=== PATIENT | female | born 1970 | race Two or more races ===

== ENCOUNTER 2025-01-13 00:50 | Emergency (ER) | payer MEDICAID, SELFPAY ==
--- OUTSIDE RECORDS SUMMARY | 2023-08-19 05:00 | XMS_ITS ---
Author Organization Teresa Perry M.D. Address [address] [place] [address] Care Team Providers Care Patient Transporter Name Role Phone TERESA PERRY Primary Care Provider [place] STROUD, Teresa Unavailable [phone] Abdoul Perry Unavailable [phone] REASON FOR VISIT *LAB RESULTS* Social History Sex Assigned At : Social History Observation Description Sex Assigned At Female Encounters Encounter Location Date Provider Diagnosis Teresa Perry M.D. [address] [place] [address] 08/19/2023 Abdoul Perry Plan Of Treatment No Information Progress Notes * YENNIFER FAITHDOB:05/1970 (54 yo F)Acc No.[id number]:08/19/2023 Progress Notes Patient: Mary Lou CRUMP YENNIFER HWANG Provider: John Perry :1970 A ge:52 Y S ex:Female Date:08/19/2023 Address:[address] [place] [address] [address], [facility] Pcp:TERESA PERRY Subjective: * Chief Complaints: * 1 . *LAB RESULTS*. * Medical History: Objective: * Vitals: Assessment: Plan: * Treatment: * Images: Billing Information: * Visit Code: * Procedure Codes: * Electronic signature of Camden Perry MD, [id number] on 01/13/2025 at 12:54 AM SENIOR PRODUCT DEVELOPMENT MANAGER Sign off status: Pending * Provider: John Perry Date: 0 08/19/2023 Generated for Rajani grande/Mario/Roz on: 1 03/15/2024 12:54 AM SENIOR PRODUCT DEVELOPMENT MANAGER
--- OUTSIDE RECORDS SUMMARY | 2023-09-09 02:15 | XMS_ITS ---
Author Organization Teresa Perry M.D. Address [address] [place] [address] Care Team Providers Care Federal Mediator Name Role Phone TERESA PERRY Primary Care Provider [phone] Teresa Perry MD Unavailable [phone] Naomy Perry Unavailable [phone] REASON FOR VISIT mammo results and labs results Social History Sex Assigned At : Social History Observation Description Sex Assigned At Female Encounters Encounter Location Date Provider Diagnosis Teresa Perry M.D. [address] [place] [address] 09/09/2023 Naomy Perry Plan Of Treatment No Information Progress Notes * YENNIFER FAITHDOB:05/1970 (54 yo F)Acc No.[id number]:09/09/2023 Telehcommunication Progress Notes Patient: Mary Lou CRUMP YENNIFER HWANG Provider: Syed Perry :1970 A ge:52 Y S ex:Female Date:09/09/2023 [facility] [facility] [address] [facility] [address], [facility] Pcp:TERESA PERRY Subjective: * Chief Complaints: * 1 . Mammo results and labs results. * Medical History: Objective: * Vitals: Assessment: Plan: * Treatment: Care Plan: * Problems: * Images: Billing Information: * Visit Code: * Procedure Codes: * Electronic signature of Silvia Perry MD, [id number] on 01/13/2025 at 12:54 AM RIGGING WORKER Sign off status: Pending * Provider: Syed Perry Date: 0 09/09/2023 Generated for Rajani grande/Mario/Roz on: 1 03/15/2024 12:54 AM RIGGING WORKER
--- OUTSIDE RECORDS SUMMARY | 2023-10-12 09:00 | XMS_ITS ---
Author Organization Teresa Perry M.D. Address [address] [facility] [place] [address] Care Team Providers Care Transfusion Aide Name Role Phone TERESA PERRY Primary Care Provider [phone] Orlando STROUD, Teresa Unavailable [phone] REASON FOR VISIT PPD skin test reading only.. Medications Medication SIG (Take, Route, Fr equency, Duration) Notes Start Date End Date Status Lisinopril 10 MG 1 tablet Orally Once a day; Duration: 90 days Active methIMAzole 5 MG 1/2 TABLET Orally On ce a day; Duration: 30 days Active Social History Sex Assigned At : Social History Observation Description Sex Assigned At Female Encounters Encounter Location Date Provider Diagnosis Teresa Perry M.D. [address] [facility] [place] [address] 10/12/2023 TERESA PERRY Plan Of Treatment No Information Progress Notes * YENNIFER FAITHDOB:05/1970 (54 yo F)Acc No.[id number]:10/12/2023 Progress Note Patient: Mary Lou CRUMP YENNIFER HWANG Provider: Silviano Perry MD :1970 A ge:52 Y S ex:Female Date:10/12/2023 Address:[address] [facility] [address], [facility] Subjective: * Chief Complaints: * 1 . PPD skin test reading only... * Medical History: * Medications: T aking Lisinopril 10 MG Tablet 1 tablet Orally Once a day , Taking methIMAzole 5 MG Tablet 1/2 TABLET Orally Once a day Objective: * Vitals: Assessment: Plan: * Treatment: * Images: Billing Information: * Visit Code: * Procedure Codes: * Electronic signature of ELENI PERRY MD on 01/13/2025 at 12:54 AM RESIDENTIAL FEE APPRAISER Sign off status: Pending * Provider: Silviano Perry MD Date: 0 10/12/2023 Generated for Rajani grande/Mario/Roz on: 1 03/15/2024 12:54 AM RESIDENTIAL FEE APPRAISER
--- OUTSIDE RECORDS SUMMARY | 2024-05-10 03:45 | XMS_ITS ---
Author Organization Walker Meng DO Address [address] [place] [address] Care Team Providers Care Emblem Maker Name Role Phone WALKER MENG Unavailable [phone] Encounters Encounter Location Date Provider Diagnosis [facility], [facility] [address] [place] [address] 05/10/2024 WALKER MENG Plan Of Treatment No Information Progress Notes * Marium SORENSENDOB:1970 (54 yo F)Acc No.[id number]:05/10/2024 Progress Notes Patient: Fbaiola PADILLAdith Provider: John Meng DO :1970 A ge:53 Y S ex:Female Date:05/10/2024 Phone: Address:[address] [place], [place] [phone] Subjective: * Chief Complaints: * * Medical History: Objective: * Vitals: Assessment: Plan: * Treatment: Forms: Care Plan: * Problems: * Images: Billing Information: * Visit Code: * Procedure Codes: Care Plan Details* * Electronic signature of JAGDISH MENG D.O. on 01/13/2025 at 12:55 AM BALLASTER Sign off status: Pending * Provider: John [facility]eng DO Date: 0 05/10/2024 Generated for Rajani grande/Mario/Kelliitting on: 1 03/15/2024 12:55 AM BALLASTER
--- OUTSIDE RECORDS SUMMARY | 2024-08-14 05:30 | XMS_ITS ---
Author Organization Teresa Perry M.D. Address [address] [place] [address] Care Team Providers Care Training Administrator Name Role Phone TERESA PERRY Primary Care Provider Teresa Perry MD Unavailable [phone] Abdoul Perry Unavailable [phone] Social History Sex Assigned At : Social History Observation Description Sex Assigned At Female Encounters Encounter Location Date Provider Diagnosis Teresa Perry M.D. [address] [place] [address] 08/14/2024 Abdoul Perry Annual physical exam Z00.00 ; Hyperthyroidism E05.90 and Essential hypertension I10 Assessments Encounter Date Diagnosis (ICD Code) Assessment Notes Treatment Notes Treatment Clinical Notes Section Notes 08/14/2024 Annual physical exam (ICD-10 - Z00.00) 08/14/2024 Hyperthyroidism (ICD-10 - E05.90) 08/14/2024 Essential hypertension (ICD-10 - I10) Plan Of Treatment No Information Progress Notes * YENNIFER FAITHDOB:05/1970 (54 yo F)Acc No.[id number]:08/14/2024 Progress Notes Patient: Mary Lou MOFFETTEZKATT ELMOREDITH Provider: John Perry :1970 A ge:53 Y S ex:Female Date:08/14/2024 Address:[address] [place], [place] [phone] Pcp:TERESA PERRY Subjective: * Chief Complaints: * * Medical History: Objective: * Vitals: Assessment: * Assessment: 1. A nnual physical exam - Z00.00 (Primary) 2 . H yperthyroidism - E05.90? 3. E ssential hypertension - I10 Plan: * Treatment: Care Plan: * Problems: * Images: Billing Information: * Visit Code: * Procedure Codes: * Electronic signature of Camden Perry MD, [id number] on 01/13/2025 at 12:54 AM PLASTIC FABRICATOR Sign off status: Pending * Provider: John Perry Date: 0 08/14/2024 Generated for Rajani grande/Mario/Roz on: 03/15/2024 12:54 AM PLASTIC FABRICATOR
--- OUTSIDE RECORDS SUMMARY | 2024-08-28 03:00 | XMS_ITS ---
Author Organization [facility] Address [address] [place] [address] Care Team Providers Care Morning Nanny Name Role Phone HEATHER PANCHAL Primary Care Provider Tai GOTTI Unavailable [phone] REASON FOR VISIT TELE MAMMO RESULTS Encounters Encounter Location Date Provider Diagnosis [facility] [address] [place] [address] 08/28/2024 Tai GOTTI Plan Of Treatment No Information Progress Notes * EDDIE DONYSHAHEENDOB:1970 (54 yo F)Acc No.[id number]:08/28/2024 Progress Notes Patient: YENNIFER PADILLA Provider: Syed Gotti :1970 A ge:53 Y S ex:Female Date:08/28/2024 Phone: Address:[facility] [place] Pcp:HEATHER PANCHAL Subjective: * Chief Complaints: * T NAVIN MAMMO RESULTS Billing Information: * Procedure Codes: * Electronic signature of CHRISTOPHER Sweeney P-AC on 01/13/2025 at 12:54 AM JOURNEYMAN GLAZIER Sign off status: Pending * Provider: Syed Gotti Date: 08/28/2024 Generated for Rajani grande/Mario/eTransmitting on: 03/15/2024 12:54 AM JOURNEYMAN GLAZIER
--- OUTSIDE RECORDS SUMMARY | 2024-10-15 10:30 | XMS_ITS ---
Author Organization Walker Meng DO Address [address] [place] [address] Care Team Providers Care Retail Seasonal Specialist Name Role Phone WALKER MENG Unavailable [phone] REASON FOR VISIT dexa Encounters Encounter Location Date Provider Diagnosis [facility], [facility] [address] [place] [address] 10/15/2024 WALKER MENG Plan Of Treatment No Information Progress Notes * Marium SORENSENDOB:1970 (54 yo F)Acc No.[id number]:10/15/2024 Progess Note Patient: Fabiola PADILLAdith Provider: John Meng DO :1970 A ge:53 Y S ex:Female Date:10/15/2024 Phone: Address:[address] [place], [place] [phone] Subjective: * Chief Complaints: * 1 . Dexa. * Medical History: Objective: * Vitals: Assessment: Plan: * Treatment: * Images: Billing Information: * Visit Code: * Procedure Codes: * Electronic signature of JAGDISH MENG D.O. on 01/13/2025 at 12:55 AM SUPERVISOR PHOSPHORUS PROCESSING Sign off status: Pending * Provider: John Meng DO Date: 0 10/15/2024 Generated for Rajani grande/Mario/eTransmitting on: 1 03/15/2024 12:55 AM SUPERVISOR PHOSPHORUS PROCESSING
--- OUTSIDE RECORDS SUMMARY | 2025-01-13 00:54 | XMS_ITS | Patient Health Record ---
Author Organization [facility] Address [address] [place] [address] Care Team Providers Care Cone Classifier Tender Name Role Phone HEATHER PANCHAL Primary Care Provider Tai GOTTI Unavailable [phone] Allergies No Known Allergies Reason For Referral No Information Medications Medication SIG (Take, Route, Frequency, Duration) Notes Start Date End Date Status Cetirizine HCl 10 MG Tablet 1 tablet as needed Orally Once a day; Duration: 90 days 10/16/2020 Not-Taking Rosuvastatin Calcium 5 MG Tablet 1 tablet Orally Once a day; Duration: 90 days 11/21/2020 Not-Takin g methIMAzole 10 MG Tablet 1 tablet Orally twice a day; Duration: 30 day(s) Active Lisinopril 5 MG Tablet 2 tablets Orally Once a day Active Social History Tobacco Use: Social History Observation Description Date Details (start date - stop date) Former Smoker NA - NA Social History Drugs/Alcohol: Social Info Question Answer Notes Drugs Have you used drugs other than those for medical reasons in the past 12 months? No Drug/Alcohol: Social Info Question Answer Notes AUDIT-C (Standard) Did you have a drink containing alcohol in the past year? Yes How often did you have a drink containing alcohol in the past year? 2 to 4 times a month (2 points) How many drinks did you have on a typical day when you were drinking in the past year? 1 or 2 drinks (0 point) How often did you have six or more drinks on one occasion in the past year? Never (0 point) Points 2 Interpretation Negative Tobacco Use: Social Info Question Answer Notes Tobacco Control (Standard) Tobacco use: Former smoker Additional Findings: Tobacco non-user Cu rrent nonsmoker, but past smoking history unknown Problems Problem Type SNOMED Code ICD Code Onset Dates Problem Status W/U Status Risk Notes Problem Iron deficiency anemia (45638624) Iron deficiency anemia, unspecified (D50.9) Active confirmed Hemoglobin normal but MCV is low - pt has hysterectomy and denies GI symptoms. Will order iron panel and H. pylori exam, f/u in 3-4 weeks for results Problem Thyrotoxicosis (23670890) Thyrotoxicosis , unspecified without thyrotoxic crisis or storm (E05.90) Active confirmed She is on Methimazole, Problem Hyperlipidemia (58626487) Hyperlipidemia , unspecified (E78.5) Active confirmed TC: Tri: LDL: HDL: ASCVD risk %: Start a diet low in saturated fats, increased physical exercise and weight loss recommended. Start Rosuvastatin 5 mg PO once a day will repeat in 3 months Problem Refractory migraine with aura (862711255) Migraine with aura, intractable, without status migrainosus (G43.119) Active confirmed Sumatriptan/Na proxen 85mg/500mg PO as needed for migraine headache, Problem Essential hypertension (70252003) Essential (primary) hypertension (I10) Active confirmed I discussed lifestyle changes with patient: Reduce salt in diet, lose weight, avoid alcohol, do not smoke, exercise at least 30 min/day. Adhere to medication regimen. Problem Allergic rhinitis (05816357) Allergic rhinitis, unspecified (J30.9) Active confirmed Cetirizine Problem Problem, abnormal examination (66240944) Encounter for general adult medical examination with abnormal findings (Z00.01) Active confirmed Follow up in 2 weeks. Problem Counseling about tobacco use (430548304) Tobacco abuse counseling (Z71.6) Active confirmed Patient already has stopped smoking started at the age of 9 Problem Impacted cerumen (08163359) Impacted cerumen of left ear (H61.22) Active confirmed Vital Signs Heart Rate 68 /min 04/12/2024 Temperature 98.5 degrees Fahrenheit 04/12/2024 Respiratory Rate 18 /min 04/12/2024 Oximetry 97 % 04/12/2024 Blood pressure diastolic 90 mm Hg 04/12/2024 Height 61 in 04/12/2024 Blood pressure systolic 140 mm Hg 04/12/2024 Weight 145 lbs 04/12/2024 BMI 27.39 kg/m2 04/12/2024 Encounters Encounter Location Date Provider Diagnosis [facility] [address] [place] [address] 04/12/2024 Ariadnamilvia GOTTI Procedure and treatment not carried out due to patient leaving prior to being seen by health care provider Z53.21 Assessments Encounter Date Diagnosis (ICD Code) Assessment Notes Treatment Notes Treatment Clinical Notes Section Notes 04/12/2024 Procedure and treatment not carried out due to patient leaving prior to being seen by health care provider (ICD-10 - Z53.21) Plan Of Treatment Pending Test Test Name Order Date MAMMOGRAM 3D 04/12/2024 Insurance Providers Payer Name Payer Address Payer Phone Subscriber Number Group Number Insured Name Patient Relationship to Insured Coverage Start Date Coverage End Date [facility] [address] [place] [address] [id number] YENNIFER MORGAN Self - patient is the insured Medical (General) History Medical History History ICD Code Hyperthyroidism Seasonal Allergies Migraine headaches Surgical History Surgery Date(Month/Year) total hysterectomy 03/2019 left ear tumor removed- benign 2018 left ear cyst removed 2017 2005
[2025-01-13 00:55] VITALS: BP 116/79; PULSE 77; RESP 20; TEMP 36.1; O2SAT 96; BMI 27.4
--- OUTSIDE RECORDS SUMMARY | 2025-01-13 00:55 | XMS_ITS | Clinical Summary ---
Author Organization [facility] [facility] Address [address] [place] [address] Care Team Providers Care Trackmobile Operator Name Role Phone Pcp, No Primary Care Provider Unavailabl e Allergies No known active allergies Medications lisinopriL (PRINIVIL; ZESTRIL) 10 mg tabletIndications :Essential hypertension Take 1 Tablet (10 mg) by mouth once daily. 100 Tablet 3 12/14/2023 Active methIMAzole (TAPAZOLE) 5 mg tabletIndications :Hyperthyroidism Take 1 Tablet (5 mg) by mouth once daily. 30 Tablet 1 12/14/2023 Active Active Problems Problem Noted Date Diagnosed Date Essential hypertension 05/29/2021 Hyperthyroidism 05/07/2021 Mixed hyperlipidemia 05/07/2021 Immunizations Immunization Administration Dates Next Due COVID-19 vaccine (Andela 30mcg/0.3mL) P F, MDV 07/17/2020,06/17/2020 Influenza Nasal, Unspecified Formulation 022 Influenza Virus, Unspecified 12/04/2020 Social History Tobacco Use Types Packs/Day Years Used Date Smoking Tobacco: Former Cigarettes Smokeless Tobacco: Former Tobacco Cessation:Counseling Given: Not Answered Alcohol Use Standard Drinks/Week Comments Not Currently 0 (1 standard drink = 0.6 oz pur e alcohol) occ Comments No Sex and Gender Information Value Date Recorded Sex Assigned at Not on file Legal Sex Female 10:14 AM CDT Gender Identity Not on file Sexual Orientation Not on file Obstetrics History Last Filed Vital Signs Vital Sign Reading Time Taken Comments Blood Pressure 144/91 12/14/2023 2:27 PM CDT Pulse 88 12/14/2023 2:27 PM CDT Temperature - - Respiratory Rate - - Oxygen Saturation 96% 12/14/2023 2:27 PM CDT Inhaled Oxygen Concentration - - Weight 90 kg (198 lb 6.4 oz) 12/14/2023 2:27 PM CDT Height - - Body Mass Index - - Plan of Treatment Health Maintenance Due Date Last Done Comments Tetanus booster 12/01/1982 Depression screening for age 12+ 1983 HIV for age 15-65 12/01/1986 BMI (ht and wt on same day) for age 18+ 12/01/1989 Hepatitis C screening for age 18-79 12/01/1989 Hepatitis B series for 19+ ( 1 of 3 - 19+ 3-dose series) 12/01/1990 Pap test for age 21-65 12/01/1992 Colonoscopy through age 75 12/01/2016 Lipids for age 45-75 12/01/2016 Mammogram for age 45-75 12/01/2016 Pneumococcal series for age 50+ (1 of 1 - PCV) 12/01/2021 Zoster (shingles) series for age 50+ (1 of 2) 12/01/2021 Influenza Vaccine (#1) 2024 12/29/2021, 2020 RSV vaccine for adults or pr egnancy (1 - 1-dose 75+ series) 12/01/2046 Care Teams Trackmobile Operator Relationship Specialty Start Date End Date Pcp, No . PCP - General 12/13/23
--- OUTSIDE RECORDS SUMMARY | 2025-01-13 00:55 | XMS_ITS | Patient Health Record ---
Author Organization [facility] , DO Address [address] [place] [place] [address] Care Team Providers Care Line Up Machine Operator Name Role Phone WALKER MENG Unavailable [phone] Allergies Allergen (clinical drug ingredient) Drug/Non Drug Allergy documented on EMR Reaction Allergy Type Onset Date Status Latex Latex rash Allergy Active Reason For Referral Diagnosis 1 Otitis media in dise ases classified elsewhere, left ear (H67.2) Referral Organization [facility] Referring Provider First Name WALKER Referring Provider Last Name TAQUERIA Referring Provider Speciality Internal M edicine Referred Provider Rayshawn Alejo Referred Provider Specialty Otolaryngolo gy General Notes Anita Mcdonald 01:26:12 PM >Pt understood; received copy of referral. Pt was advised to call her insurance if provider was out of network. Pt would call our office back with an in network provider.Harry Kaleena 06/13/2024 04:19:23 PM >As per Abhinav of Dr. Alejo's office, pt has not set up appt.Harry Kaleena 08/14/2024 11:33:03 AM >As per Naomi of Dr. Alejo's office, pt attended appt at the [place] location with provider, Dr. Gonzalez; pending progress notes to be faxed.Romero Angelica 10/24/2024 10:28:37 AM >as per Aletha of Dr. Gonzalez's office, pt was scheduled in 2019 and n/s.Romero Angelica 10/24/2024 11:59:22 AM >As per Jv of Dr. Gonzalez's office, pt has not scheduled with provider.Romero Angelica 10/24/2024 11:59:57 AM >^^ from the [place] location. Referral Priority Routine Referral Appointment Date 07/22/2024 Diagnosis 1 SOB (shortness of br eath) on exertion (R06.02) Referral Organization [facility] Referring Provider First Name WALKER Referring Provider Last Name TAQUERIA Referring Provider Speciality Internal M edicine Referred Provider Eduard Ayala Referred Provider Specialty Cardiology General Notes Anita Mcodnald 03/2024 10:00:20 AM >Pt understood; received copy of referral. Pt will call to set up appt., Anita Mcdonald 09/25/2024 10:44:07 AM >As per office of Dr. Ayala, pt is nout found in system. No appts set up.Romero Angelica 11/08/2024 01:33:07 PM >as per Laith of office, pt has not scheduled any appts with Dr. Ayala. Referral Priority Routine Medications Medication SIG (Take, Route, Frequency, Duration) Notes Start Date End Date Status Ciprofloxacin-dexAMETHasone 0.3-0.1 % 4 drops into affected ear Otic Twice a day; Duration: 10 days 04/26/2024 Active levoFLOXacin 750 MG 1 tablet Orally Once a day; Duration: 10 days 04/26/2024 Active Ofloxacin 0.3 % 10 drops into affect ed ear Ophthalmic every 12 hrs; Duration: 7 days 04/26/2024 Active methIMAzole 5 MG 1 tablet Orally Once a day; Duration: 30 day(s) 05/04/2024 Active Lisinopril 10 MG 1 tablet Orally Once a day; Duration: 30 days Active Social History Tobacco Use: Social History Observation Description Date Details (start date - stop date) Never Smoker NA - NA Tobacco Control (Standard) Question Answer Notes Tobacco use: Nonsmoker Problems Problem Type SNOMED Code ICD Code Onset Dates Problem Status W/U Status Risk Notes Problem Essential hypertension (24930234) Hypertension, unspecified type (I10) Active confirmed Vital Signs Heart Rate 70 /min 05/30/2024 Temperature 97.6 degrees Fahrenheit 05/30/2024 Oximetry 98 % 05/30/2024 Blood pressure diastolic 93 mm Hg 05/30/2024 Blood pressure systolic 137 mm Hg 05/30/2024 Weight 145.6 lbs 05/30/2024 Encounters Encounter Location Date Provider Diagnosis [facility], [facility] [address] [place] [address] 04/26/2024 WALKER MENG Otitis media in diseases classified elsewhere, left ear H67.2 [facility], [address] [address] 05/30/2024 WALKER MENG SOB (shortness of breath) on exertion R06.02 ; Annual physical exam Z00.00 and Hypertension, unspecified type I10 [facility], [address] [address] 05/04/2024 WALKER MENG [facility], [address] [place] [address] 05/17/2024 WALKER MENG [facility], [address] [address] 08/10/2024 WALKER MENG [facility], [facility] [address] [place] [address] 09/25/2024 WALKER MENG [facility], [address] [place] [address] 12/17/2024 WALKER MENG Assessments Encounter Date Diagnosis (ICD Code) Assessment Notes Treatment Notes Treatment Clinical Notes Section Notes 04/26/2024 Otitis media in diseases classified elsewhere, left ear (ICD-10 - H67.2) 05/30/2024 Annual physical exam (ICD-10 - Z00.00) 05/30/2024 SOB (shortness of breath) on exertion (ICD-10 - R06.02) 05/30/2024 Hypertension, unspecified type (ICD-10 - I10) Plan Of Treatment No Information Insurance Providers Payer Name Payer Address Payer Phone Subscriber Number Group Number Insured Name Patient Relationship to Insured Coverage Start Date Coverage End Date [facility] [address] [place] [phone] [id number] Marium Sorensen Self - patient is the insured Medical (General) History Medical History History ICD Code hypertension hyperthyroidism tumor left ear Surgical History Surgery Date(Month/Year) left ear tumor hysterectomy oopoherectomy Hospitalization History Reason Date(Month/Year) mention above
--- OUTSIDE RECORDS SUMMARY | 2025-01-13 00:55 | XMS_ITS | Patient Health Record ---
Author Organization Teresa Perry M.D. Address [address] [place] [address] Care Team Providers Care Assembler Crimper Name Role Phone TERESA PERRY Primary Care Provider Teresa Perry MD Unavailable [phone] Abdoul Perry Unavailable [phone] Allergies No Known Allergies Reason For Referral No Information Medications Medication SIG (Take, Route, Fr equency, Duration) Notes Start Date End Date Status methIMAzole 5 MG 1/2 TABLET Orally On ce a day; Duration: 30 days Active Lisinopril 10 MG 1 tablet Orally Once a day; Duration: 90 days Active Immunizations Vaccine Route Administration Date Status Comme nts ppd Tb Test (ppd) ID Intradermal 10/10/2023 Administered Social History Tobacco Use: Social History Observation Description Date Details (start date - stop date) Former Smoker NA - NA Sex Assigned At : Social History Observation Description Sex Assigned At Female Tobacco Use/Smoking Question Answer Notes Are you a former smoker Alcohol Screen Question Answer Notes Did you have a drink containing alcohol in the p ast year? No Points 0 Interpretation Negative Problems Problem Type SNOMED Code ICD Code Onset Dates Problem Status W/U Status Risk Notes Problem Essential hypertension (38005072) Essential hypertension (I10) Active confirmed Problem Hyperthyroidism (59668127) Hyperthyroidism (E05.90) Active confirmed Problem Hearing loss (47106136) Hearing loss of left ear, unspecified hearing loss type (H91.92) Active confirmed Problem History of ear infections (Z86.69) Active confirmed Problem History of ear disorder (517302407) History of ear disorder (Z86.69) Active confirmed Plan Of Treatment No Information Insurance Providers Payer Name Payer Address Payer Phone Subscriber Number Group Number Insured Name Patient Relationship to Insured Coverage Start Date Coverage End Date [facility] [address] [place], [place] [phone] [id number] YENNIFER FAITH Self - patient is the insured 4 Medical (General) History Medical History History ICD Code HTN Thyroid disorder Surgical History Surgery Date(Month/Year) hysterectomy left ear tumor removal Hospitalization History Reason Date(Month/Year) same as above
--- NOTE | 2025-01-13 01:16 | ED.GENADULT ---
HPI - General Adult General Chief complaint: Headache/Migraine Stated complaint: headache Time Seen by Provider: 01/13/25 01:16 History of Present Illness HPI narrative: Woke up with headache, has a history of migraine headaches. Pain 10/10, pain is located behind eyes and base of skull. She did take Advil 3-4 hours with no relief. 54-year-old woman presenting to the emergency department with complaint of headache. Headache began the base of her skull/upper neck posteriorly and then behind both eyes in is going to to her forehead. She does have sinus problems but does not sound as though these are flaring currently. She did try ibuprofen around 4 hours ago without relief. Has not been vomiting. Related Data Home Medications ?Medication ?Instructions ?Recorded ?Confirmed ciprofloxacin 0.3 %-dexamethasone drp otic (ear) BID 01/13/25 0.1 % ear drops,suspension lisinopril 10 mg tablet 10 mg PO DAILY 01/13/25 01/13/25 methimazole 5 mg tablet 5 mg PO DAILY 01/13/25 01/13/25 ofloxacin 0.3 % eye drops 4 drp otic (ear) BID 01/13/25 01/13/25 prednisolone acetate 1 % eye drp 01/13/25 drops,suspension Previous Rx's ?Medication ?Instructions ?Recorded lisinopril 10 mg tablet 10 mg PO DAILY #30 tabs 01/13/25 Allergies Allergy/AdvReac Type Severity Reaction Status Date / Time No Known Drug Allergies Allergy Verified 01/13/25 01:08 Review of Systems Status of ROS: Reports: 6 or more systems reviewed and unremarkable except as noted in History and below [facility] OF [facility] Social History Smoking Status: Former smoker Do you use any of these nicotine containing products: None How often do you have a drink containing alcohol: never How often do you have six or more drinks on one occasion: Never AUDIT-C Alcohol total score: 0 Non-prescribed substance use: denies use service: No Exam Narrative: Exam Narrative: Pleasant. Vital under blankets. Does admit a little light sensitivity. Skin is warm dry without rash. Well-perfused peripherally. No edema. She is sore to palpation of the occipital insertion back of her skull I do not appreciate any erythema or temporal swelling. Cranial nerves 2-12 intact. Pupils are 3 mm and equal. No facial swelling or erythema. Heart regular rate and rhythm. Const: Vital Signs, click to edit/add: Vital Signs - 24 hr 01/13/25 00:55 Temperature 96.9 F L Pulse Rate [Right Pulse Oximeter] 77 Respiratory Rate 20 Blood Pressure [Ri ght Upper Arm] 116/79 Pulse Oximetry 96 Oxygen Delivery Me thod Room Air Documenting provider has reviewed patient's vital signs: yes Course Vital Signs Vital signs: Initial Vital Signs Temperature 96.9 F L 01/13/25 00:55 Temperature Source Temporal Artery Scan 01/13/25 00:55 Pulse Rate 77 01/13/25 00:55 Pulse Rhythm Regular 01/13/25 00:55 Respiratory Rate 20 01/13/25 00:55 Blood Pressure 116/79 01/13/25 00:55 Blood Pressure Mean 91 01/13/25 00:55 Blood Pressure Position Sitting 01/13/25 00:55 Pulse Oximetry 96 01/13/25 00:55 Oxygen Delivery Method Room Air 01/13/25 00:55 Vital Signs Temperature 96.9 F L 01/13/25 00:55 Pulse Rate 77 01/13/25 00:55 Respiratory Rate 20 01/13/25 00:55 Blood Pressure 116/79 01/13/25 00:55 Pulse Oximetry 96 01/13/25 00:55 Oxygen Delivery Method Room Air 01/13/25 00:55 Temperature 96.9 F L 01/13/25 00:55 Pulse Rate 77 01/13/25 00:55 Respiratory Rate 20 01/13/25 00:55 Blood Pressure 116/79 01/13/25 00:55 Pulse Oximetry 96 01/13/25 00:55 Oxygen Delivery Method Room Air 01/13/25 00:55 Medical Decision Making MDM Narrative Medical decision making narrative: Appears to have some component of a tension headache. It sounds like not entirely atypical from prior headaches but maybe more intense. No red flags otherwise I think to generate further workup or imaging at this time. Does not appear to be infectious etiology. Given the periorbital nature of this headache might benefit from some intranasal lidocaine. I discussed doing this or standard headache cocktail and then reassessing. Marium would like to try intranasal lidocaine. A did return 2% lidocaine and an atomizer. Mist did 1 mL into each nostril. Returned later she notes significant improvement in her headache and feels she can go home. See patient discharge plan for further discussion Medical Records Medical records reviewed: Yes I reviewed the patient's medical records Discharge Plan Discharge Clinical Impression: Acute tension headache, Periorbital headache Patient Disposition: Home, Self-Care Condition: Improved Instructions: Acute Headache (ED) Additional Instructions: I'm happy you are feeling better. Hopefully you can still get a good night's sleep. Stay well-hydrated. Try to get in little heart pumping exercise every day. Prescriptions: New lisinopril 10 mg tablet 10 mg PO DAILY Qty: 30 0RF No Action ciprofloxacin-dexamethasone 0.3-0.1 % drops,suspension otic (ear) BID ofloxacin 0.3 % drops 4 drp otic (ear) BID prednisolone acetate 1 % drops,suspension Patient Comments: PLEASE SEE ATTACHED FOR DETAILED DIRECTIONS lisinopril 10 mg tablet 10 mg PO DAILY methimazole 5 mg tablet 5 mg PO DAILY Follow Up/Referrals: Provider,Not a Local [Primary Care Provider, Family Practice] Stand Alone Forms: [employer] Info Instructions
== END 2025-01-13 02:37 | disposition home or self-care (01) ==
PROVIDERS: Emergency Provider Family Medicine
DX: G44.209 Tension-type headache, unspecified, not intractable (principal)
CPT/HCPCS: 99284